=== PATIENT | female | born 1960 | race African-American/Black ===

== ENCOUNTER 2016-10-28 10:25 | Outpatient (CLI) | payer MEDICARE, OTHER ==
[2016-10-28 11:15] LABS: #Basophils 0.1 thou/uL (0.0-0.2); #Eosinphils 0.4 thou/uL (0.0-0.7); #Lymphocytes 1.6 thou/uL (1.20-3.40); #Monocytes 0.6 thou/uL (0.11-0.59); #Neutrophils 3.9 thou/uL (1.40-6.50); %Basophils 1.4 % (0.0-1.0); %Eosinophils 6.2 % (0.0-10.0); Hematocrit 34.3 % (36.0-47.0); Mean Platelet Volume 6.1 fL (7.4-10.4); Red Blood Cell (RBC) Count 3.98 mill/uL (4.20-5.40); White Blood Cell (WBC) Count 6.6 thou/uL (4.8-10.8)
[2016-10-28 12:00] LABS: ALT (SGPT) 8 U/L (0-55); AST (SGOT) 14 U/L (5-34); Alkaline Phosphatase 111 U/L (40-150); Anion Gap 14 mmol/L (10-20); BUN (Urea Nitrogen) 13 mg/dL (9.8-20.1); Bilirubin, Total 0.5 mg/dL (0.2-1.2); Calc. Creatinine Clearance 0 mL/min (70-130); Calcium 9.3 mg/dL (7.8-10.44); Carbon Dioxide 25 mmol/L (22-29); Chloride 109 mmol/L (98-107); Estimated GFR-MDRD 79; Globulin 3.4 g/dL (2.4-3.5); LDL Cholesterol, Calculated 105 mg/dL; Magnesium 1.6 mg/dL (1.6-2.6); Protein, Total 7.1 g/dL (6.0-8.3)
== END 2016-10-28 10:26 | disposition home or self-care (01) ==
LOC: HPCALD 10:25
PROVIDERS: ATTEND Family Medicine
DX: Z13.6 Encounter for screening for cardiovascular disorders (principal); I10 Essential (primary) hypertension; E83.42 Hypomagnesemia
CPT/HCPCS: 36415; 80053; 80061; 83735; 85025

== ENCOUNTER 2016-12-09 21:55 | Emergency (ER) | payer MEDICARE, OTHER ==
[2016-12-09] MEDS ORDERED: Famotidine In NaCl 20 mg/50 ml Premix Bag ONE (22:47)
[2016-12-09 22:50] LABS: #Basophils 0.2 thou/uL (0.0-0.2); #Eosinphils 0.3 thou/uL (0.0-0.7); #Lymphocytes 1.8 thou/uL (1.20-3.40); #Monocytes 0.8 thou/uL (0.11-0.59); #Neutrophils 4.8 thou/uL (1.40-6.50); %Basophils 2.6 % (0.0-1.0); %Monocytes 10.2 % (0.0-10.0); %Neutrophils 60.2 % (42.0-75.0); Hemoglobin 11.5 g/dL (12.0-16.0); Mean Corpuscular HGB CONC 31.5 g/dL (32.0-36.0); Mean Corpuscular Volume 88.9 fl (81.0-99.0); Mean Platelet Volume 6.2 fL (7.4-10.4); Platelet Count 249 thou/uL (130-400); RBC Distribution Width 15.4 % (11.5-14.5); Red Blood Cell (RBC) Count 4.09 mill/uL (4.20-5.40)
[2016-12-09 22:57] LABS: Bilirubin Negative (Negative); Blood, Urine Trace (Negative); Clarity Slightly Cloudy (Clear); Glucose, Urine (Dipstick) Negative (Negative); Leukocyte Large (Negative); Nitrite Negative (Negative); Protein, Urine (Dipstick) Negative (Neg-Trace); Specific Gravity, Urine 1.015 (1.005-1.030); Urobilinogen 0.2 mg/dL (0.2-1.0)
[2016-12-09 23:03] LABS: ALT (SGPT) 14 U/L (0-55); AST (SGOT) 15 U/L (5-34); Albumin 3.8 g/dL (3.5-5.0); Alkaline Phosphatase 116 U/L (40-150); Anion Gap 14 mmol/L (10-20); BUN (Urea Nitrogen) 16 mg/dL (9.8-20.1); Bilirubin, Total 0.3 mg/dL (0.2-1.2); Calc. Creatinine Clearance 0 mL/min (70-130); Calcium 9.6 mg/dL (7.8-10.44); Carbon Dioxide 24 mmol/L (22-29); Chloride 107 mmol/L (98-107); Estimated GFR-MDRD 71; Globulin 3.4 g/dL (2.4-3.5); Glucose 114 mg/dL (70-105); Lipase 44 U/L (8-78); Potassium 4.5 mmol/L (3.5-5.1); Protein, Total 7.2 g/dL (6.0-8.3); Sodium 140 mmol/L (136-145)
[2016-12-09 23:04] LABS: CKMB 0.9 ng/mL (0-6.6); Troponin I Less than 0.010 ng/mL (< 0.028)
[2016-12-09 23:06] LABS: Bacteria/HPF Rare-Few HPF (None Seen); RBC/HPF 0-3 HPF (0-3); Squamous Epithelial 0-3 HPF (0-3); Transitional Epithelial 0-3 HPF (0-3)
[2016-12-09] MEDS ORDERED: Lidocaine Viscous Sol 2% 15 ml UD Cup ONE (23:20)
[2016-12-09] MEDS ORDERED: Mag-Al Plus 1200 MG/1200 MG/120 MG/30 ML UDCUP ONE (23:20)
--- NOTE | 2016-12-10 06:58 | RAD ---
PORTABLE CHEST 12/09/2016 An AP portable film at 2236 hours is compared with a 09/01/2016 study. Mild cardiomegaly is about the same. There is no vascular congestion or congestive change. There i s no pleural effusion or focal pulmonary infiltrate. A MediPort catheter is present in place on the right as usual. IMPRESSION: No acute thoracic findings. POS: HOME
== END 2016-12-09 23:45 | disposition home or self-care (01) ==
LOC: BURERS 21:55
DX: R10.13 Epigastric pain (principal); R10.12 Left upper quadrant pain; Z86.73 Personal history of transient ischemic attack (TIA), and cerebral infarction without residual deficits; Z87.891 Personal history of nicotine dependence; Z79.899 Other long term (current) drug therapy
CPT/HCPCS: 71010; 80053; 81003; 81015; 82553; 83690; 84484; 85025; 85379; 87086; 93005; 96365; 96375; J1642

== ENCOUNTER 2017-04-17 14:59 | Emergency (ER) | payer MEDICARE, OTHER ==
[2017-04-17 15:41] LABS: #Basophils 0.2 thou/uL (0.0-0.2); #Eosinphils 0.3 thou/uL (0.0-0.7); #Lymphocytes 1.8 thou/uL (1.20-3.40); #Monocytes 0.6 thou/uL (0.11-0.59); #Neutrophils 4.3 thou/uL (1.40-6.50); %Basophils 2.4 % (0.0-1.0); %Eosinophils 4.9 % (0.0-10.0); %Monocytes 7.7 % (0.0-10.0); Hemoglobin 12.7 g/dL (12.0-16.0); Mean Corpuscular HGB CONC 34.4 g/dL (32.0-36.0); Mean Corpuscular Hemoglobin 31.1 pg (27.0-31.0); Mean Corpuscular Volume 90.4 fl (81.0-99.0); Mean Platelet Volume 6.6 fL (7.4-10.4); Platelet Count 233 thou/uL (130-400); Red Blood Cell (RBC) Count 4.11 mill/uL (4.20-5.40); White Blood Cell (WBC) Count 7.1 thou/uL (4.8-10.8)
[2017-04-17] MEDS ORDERED: Cyclobenzaprine 10 MG TAB ONE (15:57)
[2017-04-17] MEDS ORDERED: Mag-Al Plus 1200 MG/1200 MG/120 MG/30 ML UDCUP ONE (15:58)
[2017-04-17] MEDS ORDERED: Lidocaine Viscous Sol 2% 15 ml UD Cup ONE (15:58)
[2017-04-17 16:12] LABS: CKMB 1.1 ng/mL (0-6.6); Troponin I Less than 0.010 ng/mL (< 0.028)
[2017-04-17 16:14] LABS: ALT (SGPT) 15 U/L (8-55); AST (SGOT) 23 U/L (5-34); Albumin 4.3 g/dL (3.5-5.0); Alkaline Phosphatase 110 U/L (40-150); Anion Gap 18 mmol/L (10-20); BUN (Urea Nitrogen) 16 mg/dL (9.8-20.1); Bilirubin, Total 0.3 mg/dL (0.2-1.2); CK (CPK) 174 U/L (29-168); Calc. Creatinine Clearance 0 mL/min (70-130); Calcium 9.5 mg/dL (7.8-10.44); Carbon Dioxide 20 mmol/L (22-29); Chloride 102 mmol/L (98-107); Estimated GFR-MDRD 60; Globulin 3.3 g/dL (2.4-3.5); Glucose 104 mg/dL (70-105); Lipase 46 U/L (8-78); Potassium 5.3 mmol/L (3.5-5.1); Protein, Total 7.6 g/dL (6.0-8.3); Sodium 135 mmol/L (136-145)
--- NOTE | 2017-04-17 16:34 | RAD ---
PORTABLE CHEST: DATE: 04/17/17. COMPARISON: Comparison is made with a 12/09/16 study. FINDINGS: The patient's MediPort catheter has been removed. The heart is mildly enlarged but unchanged in siz e. There is no vascular congestion, edema, or pleural effusion. Median sternotomy sutures are seen from prior surgery. The lungs are clear. The right hilum is slightly prominent in size but no dif ferent than it was before. IMPRESSION: No acute thoracic finding. POS: HOME
== END 2017-04-17 16:43 | disposition home or self-care (01) ==
LOC: BURERS 14:59
DX: R10.12 Left upper quadrant pain (principal); I50.9 Heart failure, unspecified; I11.0 Hypertensive heart disease with heart failure; Z86.73 Personal history of transient ischemic attack (TIA), and cerebral infarction without residual deficits; Z87.891 Personal history of nicotine dependence
CPT/HCPCS: 71010; 80053; 82553; 83690; 84484; 85025; 93005; 96360

== ENCOUNTER 2017-05-11 15:11 | Emergency (ER) | payer MEDICARE, OTHER ==
[2017-05-11] MEDS ORDERED: Nitroglycerin 0.4 MG TAB (25 Tab Bottle) ONE (15:21)
[2017-05-11] MEDS ORDERED: Morphine Sulfate 2 MG/ML SYRINGE ONE ×2 (15:31→17:00)
[2017-05-11] MEDS ORDERED: diphenhydrAMINE HCl 50 MG/ML 1 ML VIAL ONE (15:31)
[2017-05-11 15:40] LABS: #Basophils 0.1 thou/uL (0.0-0.2); #Eosinphils 0.4 thou/uL (0.0-0.7); #Lymphocytes 2.3 thou/uL (1.20-3.40); #Monocytes 0.7 thou/uL (0.11-0.59); #Neutrophils 3.2 thou/uL (1.40-6.50); %Basophils 1.6 % (0.0-1.0); %Eosinophils 5.7 % (0.0-10.0); %Lymphocytes 34.8 % (21.0-51.0); %Monocytes 10.4 % (0.0-10.0); %Neutrophils 47.5 % (42.0-75.0); Hemoglobin 11.6 g/dL (12.0-16.0); Mean Corpuscular HGB CONC 33.5 g/dL (32.0-36.0); Mean Corpuscular Hemoglobin 30.4 pg (27.0-31.0); Mean Corpuscular Volume 90.6 fl (81.0-99.0); Mean Platelet Volume 6.2 fL (7.4-10.4); Platelet Count 211 thou/uL (130-400); RBC Distribution Width 13.9 % (11.5-14.5); Red Blood Cell (RBC) Count 3.84 mill/uL (4.20-5.40); White Blood Cell (WBC) Count 6.7 thou/uL (4.8-10.8)
[2017-05-11 15:54] LABS: ALT (SGPT) 11 U/L (8-55); AST (SGOT) 13 U/L (5-34); Albumin 4.2 g/dL (3.5-5.0); Alkaline Phosphatase 105 U/L (40-150); Anion Gap 13 mmol/L (10-20); BUN (Urea Nitrogen) 18 mg/dL (9.8-20.1); Bilirubin, Total 0.5 mg/dL (0.2-1.2); Calc. Creatinine Clearance 0 mL/min (70-130); Calcium 9.8 mg/dL (7.8-10.44); Carbon Dioxide 25 mmol/L (22-29); Chloride 108 mmol/L (98-107); Estimated GFR-MDRD 58; Globulin 3.3 g/dL (2.4-3.5); Glucose 107 mg/dL (70-105); Lipase 33 U/L (8-78); Protein, Total 7.5 g/dL (6.0-8.3); Sodium 142 mmol/L (136-145)
[2017-05-11 15:56] LABS: CKMB 1.3 ng/mL (0-6.6); Troponin I Less than 0.010 ng/mL (< 0.028)
[2017-05-11 16:14] LABS: PTT 33.6 SEC (22.9-36.1)
[2017-05-11 16:15] LABS: D-Dimer Test 0.35 *mcg/mL (0.27-0.43); INR-International Normal Ratio 1.1; Prothrombin Time 13.9 SEC (12.0-14.7)
--- NOTE | 2017-05-11 16:38 | RAD ---
PORTABLE CHEST 05/11/2017 Comparison is made with the 04/17/2017 study. The heart size is unchanged. There is no clear vascular congestion, edema, or pleural effusion. Th e lungs seem clear. Median sternotomy sutures are noted from prior surgery. IMPRESSION: No acute thoracic findings. POS: HOME
--- NOTE | 2017-05-11 22:10 | CT ---
CT ANGIO OF THE CHEST WITH CONTRAST: Date: 05-11-17 Technique: A bolus of IV contrast was given. Axial slices were acquired and then coronal and oblique coronal reformations were done. FINDINGS: There is excellent opacification of the pulmonary arterial system. There are no filling defects to s uggest emboli. The aorta showed no sign of aneurysm or dissection. There is a little bit of arterial sclerotic change in it. No pericardial fluid was seen. The coronary arteries fill well on each side . The lungs are clear. No infiltrate, mass, or pleural effusion was seen. Scans through the upper po rtion of the abdomen showed no acute change. IMPRESSION: No evidence of pulmonary embolism or other acute cardiopulmonary findings. POS: HOME
== END 2017-05-11 17:45 | disposition home or self-care (01) ==
LOC: BURERS 15:11
DX: R07.9 Chest pain, unspecified (principal); M54.12 Radiculopathy, cervical region; I10 Essential (primary) hypertension; Z86.73 Personal history of transient ischemic attack (TIA), and cerebral infarction without residual deficits; Z79.82 Long term (current) use of aspirin; Z79.899 Other long term (current) drug therapy
CPT/HCPCS: 71010; 71275; 80053; 82553; 83690; 83880; 84443; 84484; 85025; 85379; 85610; 85730; 93005; 94760; 96374; 96375; 96376; J1200; J2270

== ENCOUNTER 2017-05-15 14:28 | Outpatient (CLI) | payer MEDICARE, OTHER ==
--- NOTE | 2017-05-15 21:06 | CT ---
CT OF THE CERVICAL SPINE 05/15/[address] of the cervical spine was performed for evaluation of cervical radiculopathy. Axial slices were acquired, then coronal and sagittal reconstructions were done. No fracture, dislocation or soft tissue swelling was seen. The C1 to dens distance is normal. Disc space narrowing is present at C5-C6 and C6-C7. There is loss of the normal cervical lordosis wh ich could be due to muscle spasm. Findings by level follows: C1-C2: No acute findings. C2-C3: Mild right foraminal narrowing and facet arthritis. C3-C4: Minor right foraminal narrowing. C4-C5: Mild left facet arthritis and mild left foraminal narrowing. C5-C6: There is a little bit of posterior osteophyte concentrically but no central canal stenosis wa s seen. At most, there may be a little right foraminal stenosis. C6-C7: No acute findings. There is minimal left paracentral osteophyte without clear impingement. Cervical ribs are suggested at C7. C7-T1: No acute findings. T1-T2: No acute findings. Lung apices are clear. The patient's thyroid glands seems generous in size but no defects were seen within it. IMPRESSION: 1. Loss of normal lordosis which could be due to spasm. 2. Mild degenerative changes as noted above. MRI would be more sensitive to small disc herniati ons and assessing possible neural impingement. POS: HOME
== END 2017-05-15 14:29 | disposition home or self-care (01) ==
LOC: BURCT 14:28
PROVIDERS: ATTEND Family Medicine
DX: M54.12 Radiculopathy, cervical region (principal); M47.22 Other spondylosis with radiculopathy, cervical region; M50.10 Cervical disc disorder with radiculopathy, unspecified cervical region
CPT/HCPCS: 72125

== ENCOUNTER 2018-02-19 22:39 | Emergency (ER) | payer MEDICARE, OTHER | END 2018-02-19 23:00 | disposition home or self-care (01) | LOC: BURERS 22:39 | DX: I10 Essential (primary) hypertension (principal); E66.9 Obesity, unspecified; Z85.3 Personal history of malignant neoplasm of breast | CPT/HCPCS: 99283 ==

== ENCOUNTER 2018-08-04 18:35 | Emergency (ER) | payer MEDICARE, OTHER ==
[2018-08-04 19:24] LABS: #Basophils 0.2 thou/uL (0.0-0.2); #Eosinphils 0.1 thou/uL (0.0-0.7); #Lymphocytes 1.6 thou/uL (1.20-3.40); #Neutrophils 6.9 thou/uL (1.40-6.50); %Basophils 2.4 % (0.0-1.0); %Lymphocytes 16.1 % (21.0-51.0); %Monocytes 9.8 % (0.0-10.0); %Neutrophils 70.7 % (42.0-75.0); Hemoglobin 12.7 g/dL (12.0-16.0); Mean Corpuscular HGB CONC 34.4 g/dL (32.0-36.0); Mean Corpuscular Hemoglobin 31.8 pg (27.0-31.0); Mean Corpuscular Volume 92.5 fL (78.0-98.0); Mean Platelet Volume 6.8 fL (7.4-10.4); Platelet Count 236 thou/uL (130-400); RBC Distribution Width 13.7 % (11.5-14.5); Red Blood Cell (RBC) Count 3.99 mill/uL (4.20-5.40); White Blood Cell (WBC) Count 9.8 thou/uL (4.8-10.8)
[2018-08-04] MEDS ORDERED: Ketorolac Tromethamine 30 MG/ML VIAL ONE (19:25)
[2018-08-04 19:28] LABS: Clarity Clear (Clear); Glucose, Urine (Dipstick) Negative (Negative); Leukocyte Small (Negative); Nitrite Negative (Negative); Protein, Urine (Dipstick) Negative (Neg-Trace); pH, Urine 6.5 (5.0-9.0)
[2018-08-04 19:29] LABS: Bilirubin Negative (Negative); Blood, Urine Negative (Negative); Urobilinogen 0.2 mg/dL (0.2-1.0)
[2018-08-04 19:37] LABS: RBC/HPF None Seen HPF (0-3); Renal Epithelial None Seen HPF (0-3); Squamous Epithelial 0-3 HPF (0-3); Transitional Epithelial NONE SEEN HPF (0-3); WBC/HPF 0-3 HPF (0-3)
[2018-08-04 19:38] LABS: Bacteria/HPF Rare-Few HPF (None Seen); Crystals/HPF None Seen HPF (Negative); Hyaline Casts/LPF NONE SEEN LPF (0-3 Hyaline); Other Casts/LPF None Seen LPF (0-3 Hyaline); Oval Fat Bodies/HPF None Seen HPF (None Seen); Sperm/HPF None Seen HPF (None Seen); Trichomonas/HPF None Seen HPF (None Seen); Yeast-All Forms None Seen HPF (None Seen)
[2018-08-04 19:41] LABS: ALT (SGPT) 11 U/L (8-55); AST (SGOT) 20 U/L (5-34); Albumin 4.5 g/dL (3.5-5.0); Alkaline Phosphatase 186 U/L (40-150); Anion Gap 16 mmol/L (10-20); BUN (Urea Nitrogen) 19 mg/dL (9.8-20.1); Bilirubin, Total 0.4 mg/dL (0.2-1.2); Calc. Creatinine Clearance 0 mL/min (70-130); Calcium 10.1 mg/dL (7.8-10.44); Carbon Dioxide 22 mmol/L (22-29); Chloride 103 mmol/L (98-107); Estimated GFR-MDRD 56; Globulin 3.5 g/dL (2.4-3.5); Glucose 87 mg/dL (70-105); Potassium 4.3 mmol/L (3.5-5.1); Sodium 137 mmol/L (136-145)
[2018-08-04] MEDS ORDERED: Cyclobenzaprine 10 MG TAB ONE (19:53)
== END 2018-08-04 20:10 | disposition home or self-care (01) ==
LOC: BURERS 18:35
DX: R25.2 Cramp and spasm (principal); I10 Essential (primary) hypertension; C95.90 Leukemia, unspecified not having achieved remission; Z79.899 Other long term (current) drug therapy
CPT/HCPCS: 80053; 81003; 81015; 85025; 96361; 96374; J1885

== ENCOUNTER 2018-08-19 14:48 | Emergency (ER) | payer MEDICARE, OTHER ==
[2018-08-19] MEDS ORDERED: Ketorolac Tromethamine 30 MG/ML VIAL ONE (15:08)
[2018-08-19] MEDS ORDERED: Fentanyl 100 MCG/2 ML VIAL ONE (15:08)
[2018-08-19] MEDS ORDERED: Magnesium Sulfate 2 GM/100 ML BAG ONE (15:09)
--- NOTE | 2018-08-19 15:21 | RAD ---
PORTABLE CHEST ONE VIEW: Date: 08-19-18 Time: 2:45 p.m. History: Chest pain. FINDINGS/IMPRESSION: Comparison is made with 04-21-18. The heart is enlarged. There are changes of median sternotomy. The lungs are well expanded without fo nico areas of consolidation, pneumothoraces, mike pulmonary edema or pleural effusions. POS: OFF
[2018-08-19 15:31] LABS: ALT (SGPT) 12 U/L (8-55); AST (SGOT) 15 U/L (5-34); Albumin 4.1 g/dL (3.5-5.0); Alkaline Phosphatase 150 U/L (40-150); Anion Gap 16 mmol/L (10-20); BUN (Urea Nitrogen) 33 mg/dL (9.8-20.1); Bilirubin, Total 0.4 mg/dL (0.2-1.2); Calc. Creatinine Clearance 0 mL/min (70-130); Calcium 9.7 mg/dL (7.8-10.44); Carbon Dioxide 26 mmol/L (22-29); Chloride 101 mmol/L (98-107); Estimated GFR-MDRD 50; Globulin 3.3 g/dL (2.4-3.5); Glucose 87 mg/dL (70-105); Lipase 39 U/L (8-78); Magnesium 1.7 mg/dL (1.6-2.6); Protein, Total 7.4 g/dL (6.0-8.3); Sodium 139 mmol/L (136-145)
[2018-08-19 16:17] LABS: Eosinophils 1 % (0-10); Hemoglobin 12.3 g/dL (12.0-16.0); Lymphocytes 15 % (21-51); MDiff Complete? YES; Mean Corpuscular Hemoglobin 31.8 pg (27.0-31.0); Mean Corpuscular Volume 96.3 fL (78.0-98.0); Mean Platelet Volume 6.8 fL (7.4-10.4); Monocytes 9 % (0-10); Neutrophil 74 % (42-75); Platelet Count 195 thou/uL (130-400); RBC Distribution Width 13.6 % (11.5-14.5); Red Blood Cell (RBC) Count 3.87 mill/uL (4.20-5.40); White Blood Cell (WBC) Count 9.4 thou/uL (4.8-10.8)
== END 2018-08-19 16:38 | disposition home or self-care (01) ==
LOC: BURERS 14:48
DX: R25.2 Cramp and spasm (principal); I10 Essential (primary) hypertension; Z79.899 Other long term (current) drug therapy
CPT/HCPCS: 71045; 80053; 83690; 83735; 83880; 84484; 85025; 93005; 94760; 96361; 96374; 96375; J1885; J3010; J3475

== ENCOUNTER 2018-10-19 16:21 | Emergency (ER) | payer MEDICARE, OTHER ==
[2018-10-19 17:12] LABS: ALT (SGPT) 13 U/L (8-55); AST (SGOT) 22 U/L (5-34); Albumin 3.9 g/dL (3.5-5.0); Alkaline Phosphatase 185 U/L (40-150); Anion Gap 13 mmol/L (10-20); BUN (Urea Nitrogen) 24 mg/dL (9.8-20.1); Bilirubin, Total 0.3 mg/dL (0.2-1.2); Calc. Creatinine Clearance 0 mL/min (70-130); Calcium 9.3 mg/dL (7.8-10.44); Chloride 105 mmol/L (98-107); Estimated GFR-MDRD 52; Globulin 3.4 g/dL (2.4-3.5); Glucose 109 mg/dL (70-105); Protein, Total 7.3 g/dL (6.0-8.3); Sodium 140 mmol/L (136-145)
[2018-10-19 17:14] LABS: Band 1 % (5-11); Eosinophils 2 % (0-10); Hemoglobin 12.4 g/dL (12.0-16.0); Lymphocytes 24 % (21-51); MDiff Complete? YES; Mean Corpuscular HGB CONC 32.8 g/dL (32.0-36.0); Mean Corpuscular Hemoglobin 30.3 pg (27.0-31.0); Mean Corpuscular Volume 92.4 fL (78.0-98.0); Mean Platelet Volume 6.3 fL (7.4-10.4); Monocytes 12 % (0-10); Neutrophil 60 % (42-75); Platelet Count 175 thou/uL (130-400); RBC Distribution Width 13.9 % (11.5-14.5); Red Blood Cell (RBC) Count 4.09 mill/uL (4.20-5.40); White Blood Cell (WBC) Count 5.6 thou/uL (4.8-10.8)
[2018-10-19 17:51] LABS: Carbon Dioxide 26 mmol/L (22-29)
--- NOTE | 2018-10-19 20:26 | RAD ---
PORTABLE CHEST: 10/19/18 An AP portable film at 1621 is compared with a 08/19/18 study. The heart size is stable and unchanged. There is no pulmonary edema or pleural effusion. See CT repor t for further comments. IMPRESSION: No acute findings. POS: HOME
--- NOTE | 2018-10-19 22:02 | CT ---
CT ANGIO OF THE CHEST WITH CONTRAST 10/19/[address] of the chest was done after a bolus of IV contrast. Axial slices were acquired, followed by various reconstructions through the pulmonary arteries. Comparison is made with a 05/11/17 study. There is excellent opacification of the pulmonary arteries. No filling defects were seen to suggest e mboli. There is no evidence of aortic aneurysm or dissection. Plaque is seen in the aortic arch and i s somewhat prominent in size. The left common carotid artery appears to originate from the brachiocep halic trunk. The main pulmonary artery is rather wide measuring 3.8 cm in diameter. This can sometime s signify pulmonary hypertension; however, it is no different than before. There is no sign of perica rdial fluid. Some coronary artery calcifications were evident, particularly on the left side of the h eart. There is no major lobar infiltrate or effusion. On slice 51, there is a small slightly irregular grou nd glass density in the base of the right upper lobe posteriorly near the minor fissure. It measures about 1.6 cm in size and was not present in 2017. This could be nothing more than an area of atelecta sis; however, malignancy can also take on this appearance at time. this area should be watched closel y on subsequent scans. Otherwise, no pulmonary nodules of concern were found. The bony structures nii wed no areas of destruction. Scans into the upper abdomen showed no sign of adrenal mass. The visible upper abdominal structures were unremarkable. There was a small hiatal hernia. IMPRESSION: 1. No evidence of pulmonary embolism. 2. Arteriosclerosis. 3. Small hiatal hernia. 4. 1.6 cm slightly irregular ground glass density in the base of the right upper lobe, a new fin ding since 2017. Differential considerations range from the very benign such as atelectasis up to and including a potential malignancy. Given a prior history of cancer, one would speak for closer survei llance of this area with a followup CT scan, perhaps in the next 3 months or so. These results should be shared with her oncologist. Findings and need for followup discussed with Dr. Ferreira at 1818 on 10/19/18. POS: HOME
== END 2018-10-19 18:27 | disposition home or self-care (01) ==
LOC: BURERS 16:21
DX: J06.9 Acute upper respiratory infection, unspecified (principal); I10 Essential (primary) hypertension; Z87.891 Personal history of nicotine dependence; Z79.899 Other long term (current) drug therapy
CPT/HCPCS: 71045; 71275; 80053; 83880; 84484; 85025; 85379; 87804; 93005

== ENCOUNTER 2018-11-10 00:48 | Emergency (ER) | payer MEDICARE, OTHER ==
[2018-11-10] MEDS ORDERED: Ibuprofen 200 MG TAB ONE (01:05)
--- NOTE | 2018-11-10 08:07 | RAD ---
TWO VIEWS CHEST: History: Cough. Comparison: 10-19-18 FINDINGS: Two views of the chest shows normal sized cardiomediastinal silhouette. The patient is status post st ernotomy. There is no evidence of consolidation, mass, or pleural effusion. IMPRESSION: No evidence of acute cardiopulmonary disease. POS: C
== END 2018-11-10 01:32 | disposition home or self-care (01) ==
LOC: BURERS 00:48
DX: J06.9 Acute upper respiratory infection, unspecified (principal); I10 Essential (primary) hypertension; Z79.899 Other long term (current) drug therapy
CPT/HCPCS: 71046; 87804

== ENCOUNTER 2019-01-30 15:46 | Emergency (ER) | payer MEDICARE, OTHER ==
[2019-01-30] MEDS ORDERED: Albuterol Sulfate 1.25 MG/3 ML NEB ONE ×2 (15:59→16:32)
--- NOTE | 2019-01-30 16:44 | RAD ---
RADIOGRAPH CHEST 1 VIEW: DATE: 01/30/2019 HISTORY: Cough FINDINGS: There are no airspace densities, pulmonary edema, pneumothorax, or cardiomegaly. The lateral costophr enic angles are sharp. IMPRESSION: No acute cardiopulmonary findings.
[2019-01-30] MEDS ORDERED: Dexamethasone 4 MG TAB ONE (16:45)
[2019-01-30] MEDS ORDERED: cefTRIAXone\\ROCEPHIN 1 GM VIAL ONE (16:46)
[2019-01-30] MEDS ORDERED: Lidocaine 1% PF 5 ML VIAL ONE (16:49)
== END 2019-01-30 17:10 | disposition home or self-care (01) ==
LOC: BURERS 15:46
DX: J20.9 Acute bronchitis, unspecified (principal)
CPT/HCPCS: 71045; 94640; 94760; 96372; J0696; J2001; J7620; J8540

== ENCOUNTER 2019-09-13 19:57 | Emergency (ER) | payer MEDICARE, OTHER ==
[2019-09-13] MEDS ORDERED: Ondansetron PF 4 MG/2 ML Vial ONE (20:21)
[2019-09-13] MEDS ORDERED: Morphine 4 MG/ML VIAL ONE (20:21)
[2019-09-13 20:33] LABS: #Basophils 0.2 thou/uL (0.0-0.2); #Eosinphils 0.3 thou/uL (0.0-0.7); #Lymphocytes 2.7 thou/uL (1.20-3.40); #Monocytes 0.7 thou/uL (0.11-0.59); #Neutrophils 6.2 thou/uL (1.40-6.50); %Basophils 1.8 % (0.0-1.0); %Eosinophils 2.8 % (0.0-10.0); %Lymphocytes 26.8 % (21.0-51.0); %Monocytes 6.9 % (0.0-10.0); %Neutrophils 61.6 % (42.0-75.0); Hemoglobin 12.6 g/dL (12.0-16.0); Mean Corpuscular HGB CONC 32.4 g/dL (32.0-36.0); Mean Corpuscular Hemoglobin 28.8 pg (27.0-31.0); Mean Corpuscular Volume 88.8 fL (78.0-98.0); Mean Platelet Volume 6.5 fL (7.4-10.4); Platelet Count 266 thou/uL (130-400); RBC Distribution Width 14.9 % (11.5-14.5); Red Blood Cell (RBC) Count 4.38 mill/uL (4.20-5.40)
[2019-09-13 20:44] LABS: ALT (SGPT) 12 U/L (8-55); AST (SGOT) 17 U/L (5-34); Albumin 4.2 g/dL (3.4-4.8); Alkaline Phosphatase 119 U/L (40-110); Anion Gap 19 mmol/L (10-20); BUN (Urea Nitrogen) 8 mg/dL (9.8-20.1); Bilirubin, Total 0.8 mg/dL (0.2-1.2); Calc. Creatinine Clearance 0 mL/min (70-130); Carbon Dioxide 20 mmol/L (23-31); Chloride 104 mmol/L (98-107); Estimated GFR-MDRD 78; Glucose 158 mg/dL (80-115); Lipase 20 U/L (8-78); Magnesium 1.7 mg/dL (1.6-2.6); Potassium 3.8 mmol/L (3.5-5.1); Protein, Total 8.2 g/dL (6.0-8.3); Sodium 139 mmol/L (136-145)
--- NOTE | 2019-09-13 21:19 | CT ---
CT ABDOMEN AND PELVIS WITHOUT CONTRAST: 09/13/19 Comparison is made with a prior study dated 08/26/15 which was done with contrast. The lung bases are clear. A small hiatal hernia is present. The liver, spleen, and pancreas are mira l in appearance within the limitations of a noncontrast study. None are exceptionally enlarged. No sp ecific left upper quadrant pathology was seen. The adrenal glands and aorta showed no acute findings. No renal stones, hydronephrosis, or ureteral stones were seen. There is a very subtle contour abnorma lity at the outer aspect of the left kidney, better appreciated on the coronal images than the axials . This contour seems different than the 2016 scan. It might be prudent to do at least an elective ult rasound on this patient to be sure that there is no pathology in the left kidney. The major finding on the study is an umbilical hernia. It was present in 2016, but then contained onl y fat. Today, a loop of bowel is seen within it. The small bowel immediately adjacent to it shows sylwia e very mild dilation, up to 3 cm in diameter, and with air-fluid levels. This suggests the possibilit y of a partial obstruction. Currently, the degree of dilation is not excessive, so I doubt a complete obstruction is present. In addition to the above, on the prior scan there was a defect in the anteri or abdominal wall just right of midline a few slices above the umbilical hernia. This appears to have been closed, but around that site, today one sees a 3.5 cm density soft tissue density. It is in the anterior abdominal fat just anterior to the abdominal muscles to the right of midline. It could be a seroma from a prior wound closure, fibroma, or similar entity. CT of the pelvis shows calcified uterine fibroids which are similar to before. No adnexal masses were seen. No free air or free fluid was present in the pelvis or the abdomen. IMPRESSION: 1. Umbilical hernia, previously just with fat, but now with bowel in it. 2. Mild dilation (3 cm) of nearby small bowel with air fluid levels within it. A partial small b owel obstruction involving the umbilical hernia is suspected, but the findings do not support a compl ete obstruction at this time. 3. Subtle contour abnormality on the outer part of the left kidney, compared to 2016. An electiv e ultrasound is suggested to be sure there is no mass here. 4. Small hiatal hernia. 5. No free air or free fluid in the abdomen or pelvis. 6. Incidental finding of calcified uterine fibroids, present previously. Preliminary findings discussed with Dr. Aguilar at 2055 on 09/13/2019. POS: HOME
== END 2019-09-13 21:32 | disposition home or self-care (01) ==
LOC: BURERS 19:57
DX: K42.9 Umbilical hernia without obstruction or gangrene (principal); I10 Essential (primary) hypertension
CPT/HCPCS: 74176; 80053; 83605; 83690; 83735; 85025; 96361; 96374; 96375; J2270; J2405

== ENCOUNTER 2021-04-27 01:51 | Emergency (ER) | payer MEDICARE, OTHER ==
[2021-04-27] MEDS ORDERED: Magnesium 2 GM/50 ML BAG (IN WATER) ONE (02:18)
[2021-04-27 02:39] LABS: Hemoglobin 12.6 g/dL (12.0-16.0); Mean Corpuscular HGB CONC 32.6 g/dL (32.0-36.0); Mean Corpuscular Hemoglobin 28.9 pg (27.0-31.0); Mean Corpuscular Volume 88.6 fL (78.0-98.0); Platelet Count 225 thou/uL (130-400); RBC Distribution Width 14.3 % (11.5-14.5); Red Blood Cell (RBC) Count 4.35 mill/uL (4.20-5.40); White Blood Cell (WBC) Count 10.1 thou/uL (4.8-10.8)
[2021-04-27 02:57] LABS: Eosinophils 2 % (0-10); Lymphocytes 16 % (21-51); MDiff Complete? YES; Monocytes 5 % (0-10); Neutrophil 75 % (42-75); Platelet Morphology Comment Appears Adequate; RBC Morphology Normal
[2021-04-27 03:31] LABS: ALT (SGPT) 11 U/L (8-55); AST (SGOT) 14 U/L (5-34); Albumin 3.7 g/dL (3.4-4.8); Alkaline Phosphatase 157 U/L (40-110); Anion Gap 16 mmol/L (10-20); BUN (Urea Nitrogen) 16 mg/dL (9.8-20.1); Bilirubin, Total 0.3 mg/dL (0.2-1.2); Calc. Creatinine Clearance 0 mL/min (70-130); Calcium 9.2 mg/dL (7.8-10.44); Carbon Dioxide 23 mmol/L (23-31); Chloride 102 mmol/L (98-107); Globulin 4.1 g/dL (2.4-3.5); Glucose 192 mg/dL (80-115); Magnesium 2.1 mg/dL (1.6-2.6); Potassium 3.8 mmol/L (3.5-5.1); Protein, Total 7.8 g/dL (5.8-8.1); Sodium 137 mmol/L (136-145)
== END 2021-04-27 03:54 | disposition home or self-care (01) ==
LOC: BURERS 01:51
DX: R25.2 Cramp and spasm (principal); R73.9 Hyperglycemia, unspecified; I10 Essential (primary) hypertension; Z79.899 Other long term (current) drug therapy
CPT/HCPCS: 71045; 80053; 83605; 83735; 84484; 85025; 93005; 94760; 96365; J3475

== ENCOUNTER 2021-07-27 11:28 | Emergency (ER) | payer MEDICARE, OTHER ==
[2021-07-27 12:09] LABS: #Basophils 0.1 thou/uL (0.0-0.2); #Eosinphils 0.2 thou/uL (0.0-0.7); #Lymphocytes 1.8 thou/uL (1.20-3.40); #Monocytes 0.6 thou/uL (0.11-0.59); #Neutrophils 4.7 thou/uL (1.40-6.50); %Basophils 1.1 % (0.0-1.0); %Eosinophils 3.3 % (0.0-10.0); %Lymphocytes 23.8 % (21.0-51.0); %Monocytes 8.4 % (0.0-10.0); %Neutrophils 63.3 % (42.0-75.0); Hemoglobin 12.6 g/dL (12.0-16.0); Mean Corpuscular HGB CONC 31.8 g/dL (32.0-36.0); Mean Corpuscular Hemoglobin 28.6 pg (27.0-31.0); Mean Corpuscular Volume 89.9 fL (78.0-98.0); Mean Platelet Volume 6.2 fL (7.4-10.4); Platelet Count 257 thou/uL (130-400); RBC Distribution Width 13.5 % (11.5-14.5); Red Blood Cell (RBC) Count 4.39 mill/uL (4.20-5.40); White Blood Cell (WBC) Count 7.4 thou/uL (4.8-10.8)
[2021-07-27 12:27] LABS: ALT (SGPT) 14 U/L (8-55); AST (SGOT) 15 U/L (5-34); Albumin 3.9 g/dL (3.4-4.8); Alkaline Phosphatase 122 U/L (40-110); Anion Gap 15 mmol/L (10-20); BUN (Urea Nitrogen) 15 mg/dL (9.8-20.1); Bilirubin, Total 0.3 mg/dL (0.2-1.2); Calc. Creatinine Clearance 0 mL/min (70-130); Calcium 9.9 mg/dL (7.8-10.44); Carbon Dioxide 25 mmol/L (23-31); Chloride 103 mmol/L (98-107); Globulin 3.9 g/dL (2.4-3.5); Glucose 152 mg/dL (80-115); Potassium 3.8 mmol/L (3.5-5.1); Protein, Total 7.8 g/dL (5.8-8.1); Sodium 139 mmol/L (136-145)
[2021-07-27] MEDS ORDERED: Sulfameth/Trimethoprim DS 800-160mg TAB ONE (12:50)
[2021-07-27] MEDS ORDERED: Dexamethasone 4 MG TAB ONE (12:50)
== END 2021-07-27 12:53 | disposition home or self-care (01) ==
LOC: BURERS 11:28
DX: J01.90 Acute sinusitis, unspecified (principal); H81.399 Other peripheral vertigo, unspecified ear; I10 Essential (primary) hypertension; Z79.899 Other long term (current) drug therapy
CPT/HCPCS: 36415; 70450; 80053; 85025; J8540

== ENCOUNTER 2021-12-31 19:53 | Emergency (ER) | payer MEDICARE, OTHER ==
[2021-12-31 20:27] LABS: Hemoglobin 12.5 g/dL (12.0-16.0); Mean Corpuscular HGB CONC 32.1 g/dL (32.0-36.0); Mean Corpuscular Hemoglobin 29.3 pg (27.0-31.0); Mean Corpuscular Volume 91.3 fL (78.0-98.0); Mean Platelet Volume 7.3 fL (7.4-10.4); Platelet Count 241 thou/uL (130-400); Red Blood Cell (RBC) Count 4.26 mill/uL (4.20-5.40); White Blood Cell (WBC) Count 10.9 thou/uL (4.8-10.8)
[2021-12-31 20:46] LABS: ALT (SGPT) 20 U/L (8-55); AST (SGOT) 18 U/L (5-34); Albumin 4.3 g/dL (3.4-4.8); Alkaline Phosphatase 103 U/L (40-110); Anion Gap 17 mmol/L (10-20); BUN (Urea Nitrogen) 9 mg/dL (9.8-20.1); Bilirubin, Total 0.4 mg/dL (0.2-1.2); Calc. Creatinine Clearance 0 mL/min (70-130); Calcium 9.7 mg/dL (7.8-10.44); Carbon Dioxide 25 mmol/L (23-31); Chloride 103 mmol/L (98-107); Globulin 4.3 g/dL (2.4-3.5); Glucose 98 mg/dL (80-115); Potassium 3.9 mmol/L (3.5-5.1); Protein, Total 8.6 g/dL (5.8-8.1); Sodium 141 mmol/L (136-145)
[2021-12-31 21:01] LABS: Band 1 % (5-11); Eosinophils 5 % (0-10); Lymphocytes 25 % (21-51); MDiff Complete? YES; Monocytes 10 % (0-10); Neutrophil 59 % (42-75); Platelet Morphology Comment Appears Adequate; RBC Morphology Normal
== END 2021-12-31 21:16 | disposition home or self-care (01) ==
LOC: BURERS 19:53
DX: J06.9 Acute upper respiratory infection, unspecified (principal); R60.0 Localized edema; I10 Essential (primary) hypertension; I25.10 Atherosclerotic heart disease of native coronary artery without angina pectoris; Z86.73 Personal history of transient ischemic attack (TIA), and cerebral infarction without residual deficits
CPT/HCPCS: 71045; 80053; 83880; 84484; 85025; 93005; 94760

== ENCOUNTER 2022-07-29 10:14 | Outpatient (CLI) | payer MEDICARE, OTHER | END 2022-07-29 10:15 | disposition home or self-care (01) | LOC: BURRAD 10:14 | PROVIDERS: ATTEND Family Medicine | DX: J98.8 Other specified respiratory disorders (principal) | CPT/HCPCS: 71046 ==

== ENCOUNTER 2023-12-30 21:36 | Emergency (ER) | payer MEDICARE, OTHER | END 2023-12-30 21:59 | disposition home or self-care (01) | LOC: BURERS 21:36 | DX: J20.9 Acute bronchitis, unspecified (principal); I25.10 Atherosclerotic heart disease of native coronary artery without angina pectoris; I11.0 Hypertensive heart disease with heart failure; I50.9 Heart failure, unspecified | CPT/HCPCS: 99283 ==